=== PATIENT | female | born 1950 | race Caucasian/White ===

== ENCOUNTER 2017-09-08 18:22 | Observation (INO) | payer MEDICARE, MEDICAID ==
[~2017-09-08 18:22] MED LIST: ALBU6.7H INH; FLUT1SPR5 EACH NARE; GABA300C5 PO; LEVO100T5 PO; LISI40TA PO; LORA0.5T PO; MELO7.5T27 PO; SIMV20TA PO
[2017-09-08 19:37] VITALS: BP 154/74; PULSE 73; RESP 18; TEMP 97.6; O2SAT 95
[2017-09-08] MEDS ORDERED: METOCLOPRAMIDE HCL 10 MG/2 ML VIAL IV PUSH ONE (21:00)
[2017-09-08] MEDS ORDERED: HYDROmorphone HCL PF 2 MG/ML VIAL IV PUSH ONE (21:00)
--- NOTE | 2017-09-08 21:03 | PD ---
HPI Chief Complaint: Headache Time Seen by Provider: 20:58 Travel History International Travel<30 days: No Contact w/Intl Traveler<30days: No Traveled to known affect area: No History of Present Illness HPI The patient was initially evaluated in our [place] emergency department earlier today and transferred here for an MRA of the head at the request of neurosurgery. This is a 66-year-old female with history of cerebral aneurysm rupture in 2005 that was clipped by neurosurgeon Dr. Conley at that time presented to the [place] emergency department complaining of bifrontal headache that began 6 days ago. The pain radiates on the left side of her face and into her neck. She reports the pain is described as a toothache type pain, is constant, 10 out of 10. She was given Dilaudid at [place] with only mild relief of pain. CT of the head was performed there and shows aneurysmal clip in physician was some soft tissue of both aneurysm clips more prominent in appearance than it did in January with possibility of some enlargement. No definite subarachnoid hemorrhage seen. Patient is complaining of photophobia and some blurriness in her vision. No paresthesias or motor deficits. No trauma. PFSH Past Medical History Arthritis: Yes Asthma: Yes Blood Disorders: No Anxiety: Yes Heart Rhythm Problems: No Cancer: No Cardiovascular Problems: Yes (HTN, HIGH CHOLESTEROL) High Cholesterol: Yes Chest Pain: No Congestive Heart Failure: No COPD: Yes Cerebrovascular Accident: Yes Diminished Hearing: No Endocrine: Yes Gastrointestinal Disorders: Yes Glaucoma: Yes Genitourinary: No Headaches: Yes Hiatal Hernia: Yes Hypertension: Yes Immune Disorder: No Implanted Vascular Access Dvce: No Musculoskeletal: Yes (back pain) Neurologic: Yes (FIBROMYALGIA, brain aneurysm) Psychiatric: Yes Reproductive: Yes Respiratory: Yes (ASTHMA) Migraines: Yes Myocardial Infarction: No Seizures: No Sleep Apnea: No Thyroid Disease: Yes (HYPO) PNEUMOCCOCAL Vaccine (Year): 2 ?: Not Menopausal: Yes : 2 Para: 2 Miscarriage: 0 Ovarian Cysts: Yes Past Surgical History Abdominal Aneurysm Repair: Yes (L FRONTAL REPAIR 06/2006 IN BRAIN) Abdominal Surgery: Yes (BOWEL RESECTION FOR BENIGN TUMOR HERNIA) Cardiac Surgery: No Ear Surgery: No Endocrine Surgery: No Eye Surgery: No Genitourinary Surgery: No Gynecologic Surgery: Yes (IUD SURGICALLY REMOVED) Hysterectomy: Yes (PARTIAL- RIGHT OVARY AND RIGHT FALLOPIAN TUBE REMOVED) Neurologic Surgery: Yes (BRAIN ANEURYSM) Oral Surgery: Yes (DENTURES) Thoracic Surgery: No Other Surgery: Yes (RIGHT OVARIAN/BRAIN/COLON/HERNIA) Social History Alcohol Use: No Tobacco Use: No Substance Use: No Allergies-Medications (Allergen,Severity, Reaction): Coded Allergies: Sulfa (Sulfonamide Antibiotics) (Unverified Allergy, Severe, Nausea/ Vomiting, 09/08/17) iodine (Unverified Allergy, Severe, Headache, 09/08/17) monosodium glutamate (Unverified Allergy, Severe, 09/08/17) potassium iodide (Unverified Allergy, Severe, Headache, 09/08/17) povidone-iodine (Unverified Allergy, Severe, Headache, 09/08/17) sodium iodide (Unverified Allergy, Severe, Headache, 09/08/17) sodium iodide (Unverified Allergy, Severe, Headache, 09/08/17) Reported Meds & Prescriptions Reported Meds & Active Scripts Active Reported Meloxicam 7.5 Mg Tab 7.5 Mg PO BID Lorazepam 0.5 Mg Tab 0.5 Mg PO TID PRN Flonase Nasal Redgranite (Fluticasone Nasal Redgranite) 50 Mcg/Act Redgranite 50 Mcg EACH NARE BID Proventil Hfa 6.7 GM Inh (Albuterol Sulfate) 90 Mcg/Act Aer 2 Puff INH Q6H PRN Simvastatin 20 Mg Tab 20 Mg PO HS Levothyroxine (Levothyroxine Sodium) 100 Mcg Tab 100 Mcg PO DAILY Gabapentin 300 Mg Cap 300 Mg PO TID Lisinopril 40 Mg Tab 40 Mg PO DAILY Review of Systems Except as stated in HPI: all other systems reviewed are Neg Physical Exam Narrative GENERAL: Well-developed, well-nourished, awake, alert, appears comfortable, no apparent distress. SKIN: Focused skin assessment warm/dry. No rash. HEAD: Atraumatic. Normocephalic. EYES: Left pupil is 4 mm and minimally reactive, right pupil is 2 mm and minimally reactive. The patient reports history of bilateral cataract surgeries. No scleral icterus. No injection or drainage. ENT: No nasal bleeding or discharge. NECK: Trachea midline. No JVD. No nuchal rigidity. CARDIOVASCULAR: Regular rate and rhythm. RESPIRATORY: No accessory muscle use. Clear to auscultation. Breath sounds equal bilaterally. GASTROINTESTINAL: Abdomen soft, non-tender, nondistended. MUSCULOSKELETAL: No obvious deformities. No clubbing. No cyanosis. No edema. NEUROLOGICAL: Awake and alert. No obvious cranial nerve deficits. Motor grossly within normal limits. Normal speech. PSYCHIATRIC: Appropriate mood and affect; insight and judgment normal. Data Data Last Documented VS Vital Signs Date Time Temp Pulse Resp B/P (MAP) Pulse Ox O2 Delivery O2 Flow Rate FiO2 09/08/17 23:36 16 09/08/17 23:25 67 132/71 (91) 96 Room Air 09/08/17 19:37 97.6 Orders Orders Mra Brain W/O Contrast (Cow) (09/08/17 ) Mra Carotids W Contrast (09/08/17 ) Hydromorphone Pf Inj (Dilaudid Pf Inj) (09/08/17 21:00) Metoclopramide Inj (Reglan Inj) (09/08/17 21:00) MDM Medical Decision Making Medical Screen Exam Complete: Yes Emergency Medical Condition: Yes Differential Diagnosis Subarachnoid hemorrhage, intracranial abnormality, intracranial mass, tension headache, cluster headache, migraine headache, meningitis/encephalitis unlikely , cervical artery dissection Narrative Course Vital signs reviewed. Patient was sent here from [place] emergency department for an MRA of her brain. She has a history of cerebral aneurysm with clipping in [address] Conley. She has been having a headache over the last 6 days with a head CT that was done today that shows that there may be some enhancement around the site of her aneurysmal clipping. MRA was recommended by the patient's neurosurgeon Dr. Conley, so the patient was transferred here. Because the patient has aneurysmal clipping, and it is unclear exactly what's device was used for the clipping, the technical customer support specialist does not feel comfortable performing MRI at this time. The patient has a reported allergy to iodine and iodinated contrast material, therefore CTA cannot be performed. I discussed this with Dr. Conley as well as the MRI, and plan at this time is to admit the patient to the medical service for this can all be resolved in the morning. Patient was made aware of this plan. She was given a dose of IV Dilaudid and IV Reglan here and is resting comfortably. She still has a headache, however it has improved with the medication. Case discussed with hospitalist Dr. Donnelly who will admit the patient to her service. Diagnosis Primary Impression: Intractable headache Qualified Codes: R51 - Headache Admitting Information Admitting Physician Requests: Observation Adolfo James MD Sep 08, 2017 21:03
[2017-09-08 22:01] VITALS: BP 153/79; PULSE 89; RESP 20; O2SAT 96
[2017-09-08 23:25] VITALS: BP 132/71; PULSE 67; RESP 20; O2SAT 96
[2017-09-09] VITALS (15 sets, daily range): BP systolic 91–218; BP diastolic 54–104; PULSE 53–96; RESP 14–20; TEMP 97.7–98.7; O2SAT 93–100
[2017-09-09] MEDS ORDERED: IOHEXOL 350 MG/ML 10 ML VIAL (for RAD DIAG) IVCONTRAST ONE (00:14)
[2017-09-09] MEDS ORDERED: NALOXONE HCL 0.4 MG/ML AMP IV PUSH PRN (00:30)
[2017-09-09] MEDS ORDERED: SODIUM CHLORIDE 0.9% FLUSH 10 ML FLUSH IV FLUSH PRN (00:30)
--- NOTE | 2017-09-09 01:06 | HHI.HP ---
HPI Service [facility] Primary Care Physician Non-Staff Admission Diagnosis intractable headache Diagnoses: Chief Complaint: Headache Travel History International Travel<30 Days: No Contact w/Intl Traveler <30 Da: No Traveled to Known Affected Are: No History of Present Illness 66-year-old female with a history of hypertension, hyperlipidemia,migraines and aneurysm with clipping 2005 presented to the ED in [place] with complaints of severe headaches. Patient states for the last 6 days she has had Frontal headaches, constant, 10/10, with associated left neck pain, nausea and vomiting , pain is worse with lights and movement, Dilaudid seems to help some. She is nauseous and dry heaving and asking for food, she states she hasn't had anything since her coffee at breakfast. She is concerned it might be an problem with her aneurysm. She states the pain is bad but not as bad as when she had her aneurysm in 2005. Patient was sent from [place] for an MRA of the brain to evaluate for headache. Dr. Conley was notified and will see patient in AM. Head CT completed at [facility] reviewed and shows the aneurysm clip in stable position, with the soft tissue of the aneurysm clip slightly more prominent with possibility of enlargement. No signs of a subarachnoid hemorrhage. 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 Conley 07/12/06 Bowel resection Disc shaving Reported Medications Reported Meds & Active Scripts Active Reported Meloxicam 7.5 Mg Tab 7.5 Mg PO BID Lorazepam 0.5 Mg Tab 0.5 Mg PO TID PRN Flonase Nasal Sod (Fluticasone Nasal Sod) 50 Mcg/Act Sod 50 Mcg EACH NARE BID Proventil Hfa 6.7 GM Inh (Albuterol Sulfate) 90 Mcg/Act Aer 2 Puff INH Q6H PRN Simvastatin 20 Mg Tab 20 Mg PO HS Levothyroxine (Levothyroxine Sodium) 100 Mcg Tab 100 Mcg PO DAILY Gabapentin 300 Mg Cap 300 Mg PO TID Lisinopril 40 Mg Tab 40 Mg PO DAILY Allergies: Coded Allergies: Sulfa (Sulfonamide Antibiotics) (Unverified Allergy, Severe, Nausea/ Vomiting, 09/08/17) iodine (Unverified Allergy, Severe, Headache, 09/08/17) monosodium glutamate (Unverified Allergy, Severe, 09/08/17) potassium iodide (Unverified Allergy, Severe, Headache, 09/08/17) povidone-iodine (Unverified Allergy, Severe, Headache, 09/08/17) sodium iodide (Unverified Allergy, Severe, Headache, 09/08/17) sodium iodide (Unverified Allergy, Severe, Headache, 09/08/17) Active Ordered Medications Current Medications Medications (Trade) Dose Ordered Sig/Consuelo Route Start Time Stop Time Status Last Admin (NS Flush) 2 ml UNSCH PRN IV FLUSH 09/09/17 00:30 (NS Flush) 2 ml BID IV FLUSH 09/09/17 09:00 (Narcan Inj) 0.4 mg UNSCH PRN IV PUSH 09/09/17 00:30 Family History Dad: Emphysema Mother: Heart disease Social History Tobacco use: Quit 2005 Alcohol use: Denies Illicit drug use: Marijuana Physical Exam Vital Signs Vital Signs Date Time Temp Pulse Resp B/P (MAP) Pulse Ox O2 Delivery O2 Flow Rate FiO2 09/08/17 23:36 16 09/08/17 23:25 67 20 132/71 (91) 96 Room Air 09/08/17 22:01 89 20 153/79 (103) 96 Room Air 09/08/17 19:37 97.6 73 18 154/74 (100) 95 Physical Exam GENERAL: This is a well-nourished, well-developed patient, in no apparent distress. SKIN: No rashes, ecchymoses or lesions. Cool and dry. HEAD: Atraumatic. Normocephalic. EYES: Pupils unequal equal from cataracts, round and reactive. ENT: Nose without bleeding, purulent drainage or septal hematoma. airway patent. NECK: Trachea midline. No JVD or lymphadenopathy. CARDIOVASCULAR: Regular rate and rhythm without murmurs, gallops, or rubs. RESPIRATORY: Clear to auscultation. Breath sounds equal bilaterally. No wheezes , rales, or rhonchi. GASTROINTESTINAL: Abdomen soft, non-tender, nondistended MUSCULOSKELETAL: Extremities without clubbing, cyanosis, or edema. No joint tenderness, effusion, or edema noted. No calf tenderness. NEUROLOGICAL: Awake and alert. Motor and sensory grossly within normal limits. Normal speech. Caprini VTE Risk Assessment Caprini VTE Risk Assessment: No/Low Risk (score <= 1) Caprini Risk Assessment Model Point Value = 1 Point Value = 2 Point Value = 3 Point Value = 5 Age 41-60 Minor surgery BMI > 25 kg/m2 Swollen legs Varicose veins or History of unexplained or recurrent spontaneous Oral contraceptives or hormone replacement Sepsis (< 1 month) Serious lung disease, including pneumonia (< 1 month) Abnormal pulmonary function Acute myocardial infarction Congestive heart failure (< 1 month) History of inflammatory bowel disease Medical patient at bed rest Age 61-74 Arthroscopic surgery Major open surgery (> 45 min) Laparoscopic surgery (> 45 min) Malignancy Confined to bed (> 72 hours) Immobilizing plaster cast Central venous access Age >= 75 History of VTE Family history of VTE Factor V Leiden Prothrombin [id number] Lupus anticoagulant Anticardiolipin antibodies Elevated serum homocysteine Heparin-induced thrombocytopenia Other congenital or acquired thrombophilia Stroke (< 1 month) Elective arthroplasty Hip, pelvis, or leg fracture Acute spinal cord injury (< 1 month) Prophylaxis Regimen Total Risk Factor Score Risk Level Prophylaxis Regimen 0-1 Low Early ambulation 2 Moderate Order ONE of the following: *Sequential Compression Device (SCD) *Heparin 5000 units SQ BID 3-4 Higher Order ONE of the following medications: *Heparin 5000 units SQ TID *Enoxaparin/Lovenox 40 mg SQ daily (WT < 150 kg, CrCl > 30 mL/min) *Enoxaparin/Lovenox 30 mg SQ daily (WT < 150 kg, CrCl > 10-29 mL/min) *Enoxaparin/Lovenox 30 mg SQ BID (WT < 150 kg, CrCl > 30 mL/min) AND/OR *Sequential Compression Device (SCD) 5 or more Highest Order ONE of the following medications: *Heparin 5000 units SQ TID (Preferred with Epidurals) *Enoxaparin/Lovenox 40 mg SQ daily (WT < 150 kg, CrCl > 30 mL/min) *Enoxaparin/Lovenox 30 mg SQ daily (WT < 150 kg, CrCl > 10-29 mL/min) *Enoxaparin/Lovenox 30 mg SQ BID (WT < 150 kg, CrCl > 30 mL/min) AND *Sequential Compression Device (SCD) Assessment and Plan Problem List: (1) Intractable headache ICD Code: R51 - Headache Status: Acute (2) Hypertension ICD Code: I10 - Essential (primary) hypertension Status: Chronic Assessment and Plan 66-year-old female with a history of hypertension, hyperlipidemia,migraines and aneurysm with clipping 2005 presented to the ED in [place] with complaints of severe headaches. Intractable headache, for the last 6 days, history of migraines Head CT completed at [facility] reviewed and shows the aneurysm clip in stable position, with the soft tissue of the aneurysm clip slightly more prominent with possibility of enlargement. No signs of a subarachnoid hemorrhage. -MRA brain and carotids in AM -Consult neurosurgery -Pain management with IV Dilaudid -Antiemetics as needed -Given the length of time since headaches began, history and negative CT, patient appears stable to have MRA in AM to determine if clips are compatible. No signs of active hemorrhage. Hypertension, chronic, controlled -Cont home medications when med rec is complete, monitor vitals -PRNs if needed Hypothyroid, chronic -Cont home medications when med rec is complete DVT prophylaxis: SCDs Problem Qualifiers (1) Intractable headache: Qualified Codes: R51 - Headache Claudia Segal DASHA Sep 09, 2017 01:05
[2017-09-09] MEDS ORDERED: HYDROmorphone HCL PF 2 MG/ML VIAL IV PUSH PRN (01:30)
[2017-09-09] MEDS ORDERED: METOCLOPRAMIDE HCL 10 MG/2 ML VIAL IV PUSH PRN (01:30)
[2017-09-09] MEDS ORDERED: ONDANSETRON HCL 4 MG/2 ML VIAL IV PUSH PRN (01:30)
[2017-09-09] MEDS ORDERED: BISACODYL 10 MG SUPP RECTAL PRN (02:00)
[2017-09-09] MEDS ORDERED: MAGNESIUM HYDROXIDE SUSP 30 ML CUP PO PRN (02:00)
[2017-09-09] MEDS ORDERED: ACETAMINOPHEN 325 MG TAB PO PRN (02:00)
[2017-09-09] MEDS: HYDROmorphone HCL PF 2 MG/ML VIAL IV PUSH PRN ×2 (04:32→10:09)
[2017-09-09] MEDS ORDERED: diphenhydrAMINE HCL 50 MG CAP PO ONE ×2 (08:00→09:00)
[2017-09-09] MEDS ORDERED: SODIUM CHLORIDE 0.9% FLUSH 10 ML FLUSH IV FLUSH SCH (09:00)
[2017-09-09] MEDS ORDERED: predniSONE 50 MG TAB PO ONE (09:00)
[2017-09-09] MEDS ORDERED: methylPREDNISolone SOD SUCC 125 MG/2 ML VIAL IV SCH (10:15)
[2017-09-09] MEDS ORDERED: diphenhydrAMINE HCL 50 MG CAP PO SCH (10:15)
[2017-09-09] MEDS ORDERED: LORazepam 2 MG/ML VIAL ONE (11:30)
[2017-09-09] MEDS ORDERED: LORazepam 2 MG/ML VIAL IV PUSH PRN (11:45)
[2017-09-09] MEDS ORDERED: LABETALOL HCL 100 MG/20 ML VIAL IV PUSH PRN (12:00)
[2017-09-09] MEDS ORDERED: hydrALAZINE HCL 20 MG/ML VIAL IV PUSH PRN (12:00)
[2017-09-09] MEDS ORDERED: ENALAPRILAT 1.25 MG/ML VIAL IV PUSH PRN (12:00)
[2017-09-09] MEDS ORDERED: hydrALAZINE HCL 10 MG TAB PO PRN (12:00)
[2017-09-09 12:02] LABS: AUTOMATED NEUTROPHIL # 10.4 TH/MM3 (1.8-7.7); BASOPHIL # 0.1 TH/MM3 (0-0.2); BASOPHIL % 0.6 % (0.0-2.0); EOSINOPHIL % 0.3 % (0.0-4.0); HEMATOCRIT 43.5 % (35.0-46.0); LYMPH % 18.7 % (9.0-44.0); LYMPHOCYTE # 2.6 TH/MM3 (1.0-4.8); MEAN CELL VOLUME 91.4 FL (80.0-100.0); MEAN CORPUSCULAR HEMOGLOBIN 29.5 PG (27.0-34.0); MEAN CORPUSCULAR HGB CONC 32.3 % (32.0-36.0); MEAN PLATELET VOLUME 10.8 FL (7.0-11.0); MONO % 5.7 % (0.0-8.0); MONOCYTE # 0.8 TH/MM3 (0-0.9); NEUT % 74.7 % (16.0-70.0); PLATELET COUNT 263 TH/MM3 (150-450); RED BLOOD COUNT 4.76 MIL/MM3 (4.00-5.30); RED CELL DISTRIBUTION WIDTH 15.9 % (11.6-17.2)
--- NOTE | 2017-09-09 12:13 | RADRPT ---
EXAM DATE/TIME: 09/09/2017 12:01 [facility] COMPARISON: No previous studies available for comparison. INDICATIONS : Evaluate for aneurysm,seizure and reaction to benadryl in last few minutes. RADIATION DOSE: 41.53 CTDIvol (mGy) MEDICAL HISTORY : Cerebrovascular disease. Cardiovascular disease Hypertension.Aneurysm SURGICAL HISTORY : Hysterectomy. AAA, bowel resection. ENCOUNTER: Initial ACUITY: 1 day PAIN SCALE: Non-responsive LOCATION: cranial TECHNIQUE: Multiple contiguous axial images were obtained of the head. Using automated exposure control and adj ustment of the mA and/or kV according to patient size, radiation dose was kept as low as reasonably a chievable to obtain optimal diagnostic quality images. DICOM format image data is available electro nically for review and comparison. FINDINGS: The examination demonstrates extensive subarachnoid hemorrhage involving the middle cranial fossa wit h some degree of hemorrhage extending into the substance of the left temporal lobe. There is intraven tricular hemorrhage as well. There is subdural hemorrhage layering along the tentorium. Note is made of an aneurysm clip in the floor the middle cranial fossa on the left. The ventricular system is normal in size and configuration. No focal mass lesion is identified. The c erebellum and brainstem appear intact. Note is made of hemorrhage within the fourth ventricle as well . The osseous structures of skull demonstrate postcraniotomy changes on the left. CONCLUSION: 1. Extensive subarachnoid hemorrhage involving the middle cranial fossa predominantly left sided with some degree of parenchymal hemorrhage in the left temporal lobe. There is intraventricular hemorrhag e as well. 2. Note is made of an aneurysm clip in the middle cranial fossa as well. Wong Springer MD on September 09, 2017 at 12:09 Board Certified Radiologist. This report was verified electronically.
[2017-09-09] MEDS ORDERED: GLUCAGON 1 MG/ML VIAL OTHER PRN (12:15)
[2017-09-09] MEDS ORDERED: DEXTROSE 50% IN WATER 50 ML VIAL(D50) IV PUSH PRN (12:15)
--- NOTE | 2017-09-09 12:25 | HHI.PR ---
Subjective Remarks Paged by the nurse as patient with acute deterioration. Patient with acute deterioration, noted alert and oriented x4 prior. In bed appears diaphoretic. Dessating 86% while on 2L NC. Patient also was not responding initially briefly, but improved. Patient is alert and oriented by name now, noted with sob, diaphoretic, says has change in vision. She is moving arms and legs and has a good strength. However she has neck rigidity. Start CT ordered and also Dr Conley was notified. Patient went for CT and per premiliminary reading patient with Objective Vitals Vital Signs Date Time Temp Pulse Resp B/P (MAP) Pulse Ox O2 Delivery O2 Flow Rate FiO2 09/09/17 07:37 98.7 92 18 140/75 (96) 94 Room Air 09/09/17 06:15 53 16 144/63 (90) 93 Room Air 09/09/17 04:45 77 18 134/63 (86) 97 Room Air 09/09/17 00:25 72 16 129/63 (85) 94 Room Air 09/08/17 23:36 16 09/08/17 23:25 67 20 132/71 (91) 96 Room Air 09/08/17 22:01 89 20 153/79 (103) 96 Room Air 09/08/17 19:37 97.6 73 18 154/74 (100) 95 Result Diagram: 09/09/17 1136 Objective Remarks GENERAL: This is a pleasant 66 yo female, well-nourished, well-developed patient , noted in acute distress with acute deterioration, diaphoretic, lethargic. CARDIOVASCULAR: Regular rate and rhythm without murmurs, gallops, or rubs. RESPIRATORY: Decreased breathing sounds. Labored breathing. No wheezes, rales , or rhonchi. GASTROINTESTINAL: Abdomen soft, non-tender, nondistended. MUSCULOSKELETAL: Extremities without clubbing, cyanosis, or edema. No joint tenderness, effusion, or edema noted. No calf tenderness. NEUROLOGICAL: Awake and alert x name however she is becoming lethargic on/off. Blurry vision, doesn't follow all commands. Motor and sensory grossly within normal limits. Normal speech, slow, however deteriorating and lethargic now. A/P Problem List: (1) Intractable headache ICD Code: R51 - Headache Status: Acute (2) Hypertension ICD Code: I10 - Essential (primary) hypertension Status: Chronic Assessment and Plan 66-year-old female with a history of hypertension, hyperlipidemia,migraines and aneurysm with clipping 2005 presented to the ED in [place] with complaints of severe headaches. Intractable headache, for the last 6 days, history of migraines Head CT completed at [place] reviewed and shows the aneurysm clip in stable position, with the soft tissue of the aneurysm clip slightly more prominent with possibility of enlargement. Now noted with signs of acute subarachnoid hemorrhage. Was planed for MRA brain and carotids in the AM, however patient is refusing MRIs. Do instead CTA brain, discussed with Dr Mckeon and Dr Conley Consult neurosurgery, Dr Conley ff Consult neurology Initially the ABG reviewed and fairly normal. Patient however went to CT brain and also after CTA brain the patient is deteriorating even more she is dessating and with labor breathing, altered mentation, Consult nurse behavioral health care discussed with Dr Esposito he will come and intubate patient as the patient is with labored breathing. Pain management with IV Dilaudid, hold at this time as patient altered mental status Antiemetics as needed Zofran for nausea BP elevated SBP in 180s. Labetalol, hydralazine IVP for SBP> 160 start nicardipine drip. ordered start CXR, EKG reviewed and no significant acute changes. Trop start neg CBC, CBP, PTT, INR reviewed Neurochecks q1 hrs PT/OT/ST NPO Hypertension, chronic, controlled Cont home medications when med rec is complete, monitor vitals PRNs if needed Hypothyroid, chronic Cont home medications when med rec is complete DVT prophylaxis: SCDs Patient deteriorating nurse behavioral health care consulted patient is intubated by nurse behavioral health care and will be moved to surgical ICU. Patient might need to be transferred to [facility] pending reevaluation by Dr Conley neurosurgevania Transfer patient to ICU Discussed with the patient, nurse, Dr Esposito, nurse behavioral health care, Dr Conley neurosurgeon Critical time > 40 minutes Problem Qualifiers (1) Intractable headache: Qualified Codes: R51 - Headache Mamie Tyler MD Sep 09, 2017 12:25
[2017-09-09] MEDS ORDERED: SUCCINYLCHOLINE CHLORIDE 200 MG/10 ML VIAL ONE (12:30)
[2017-09-09] MEDS ORDERED: ETOMIDATE 40 MG/20 ML VIAL ONE (12:30)
[2017-09-09 12:31] LABS: PROTHROMBIN TIME - PATIENT 10.4 SEC (9.8-11.6)
--- NOTE | 2017-09-09 12:35 | RADRPT ---
EXAM DATE/TIME: 09/09/2017 12:09 [facility] COMPARISON: No previous studies available for comparison. INDICATIONS : Confusion, altered mental status, stroke symptoms. MEDICAL HISTORY : Hypothyroidism. Chronic obstructive pulmonary disease. Hypercholesterolemia. Fibromyalgia. Aneury sm. CVA. Hypertension. Asthma. Hiatial Hernia. SURGICAL HISTORY : Hysterectomy. Left frontal brain aneurysm. Bowel resection. ENCOUNTER: Initial ACUITY: 1 day PAIN SCORE: 0/10 LOCATION: chest FINDINGS: A single view of the chest demonstrates the lungs to be symmetrically aerated without evidence of mas s, infiltrate or effusion. Mild chronic changes are present in the aorta. The cardiomediastinal cont ours are unremarkable. Osseous structures are intact. CONCLUSION: No acute disease. Ricardo Dawn MD on September 09, 2017 at 12:32 Board Certified Radiologist. This report was verified electronically.
[2017-09-09] MEDS ORDERED: niCARdipine INJ 25 MG in SODIUM CHLOR 0.9% 250 ML INJ 240 ML IV PRN ×2 (12:45)
[2017-09-09 12:46] LABS: ALKALINE PHOSPHATASE 110 U/L (45-117); ALT (GPT) 16 U/L (10-53); TOTAL BILIRUBIN ADULT 0.5 MG/DL (0.2-1.0); TOTAL PROTEIN 8.5 GM/DL (6.4-8.2); TROPONIN I LESS THAN 0.02 NG/ML (0.02-0.05)
[2017-09-09 12:48] LABS: AST (GOT) 20 U/L (15-37); BICARBONATE 23.5 MEQ/L (21.0-32.0); BLOOD UREA NITROGEN 11 MG/DL (7-18); CALCIUM 9.3 MG/DL (8.5-10.1); CHLORIDE 106 MEQ/L (98-107); CREATININE 0.75 MG/DL (0.50-1.00); GLOMERULAR FILTRATION RATE 77 ML/MIN (>89); GLUCOSE,RANDOM 135 MG/DL (74-106); SODIUM (NA) 142 MEQ/L (136-145)
[2017-09-09 12:49] LABS: C-REACTIVE PROTEIN 0.6 MG/DL (0.00-0.30); MAGNESIUM 2.1 MG/DL (1.5-2.5); PHOSPHORUS 3.3 MG/DL (2.5-4.9)
--- NOTE | 2017-09-09 12:59 | PD ---
Data Data Last Documented VS Vital Signs Date Time Temp Pulse Resp B/P (MAP) Pulse Ox O2 Delivery O2 Flow Rate FiO2 09/08/17 23:36 16 09/08/17 23:25 67 132/71 (91) 96 Room Air 09/08/17 19:37 97.6 Orders Orders Hydromorphone Pf Inj (Dilaudid Pf Inj) (09/08/17 21:00) Metoclopramide Inj (Reglan Inj) (09/08/17 21:00) Admit Order (Ed Use Only) (09/09/17 00:13) MDM Supervised Visit with EVARISTO: No Narrative Course This patient was evaluated by previous shift ER physician but still sitting here in the emergency department when she had a significant turn for the worse. Nursing staff asked me to emergently evaluate this patient. She was found to be lying half out of the bed and obtunded with snoring respiratory effort. She is not able to provide any history or review of systems. She is not controlling her airway. She has no gag reflex. She is choking on secretions. She was just taken for repeat CT of the brain which shows a large subarachnoid hemorrhage. This patient requires emergent intubation to control her airway. INTUBATION: The patient was put in optimal position for the procedure. Rapid sequence intubation was initiated by me using 20 milligrams of etomidate IV and 100 milligrams of succinylcholine IV. The patient was intubated with a 7.5 cuffed endotracheal tube. Tube placement was confirmed by visualization of the tube and balloon passing through the cords, capnometry. Post admission chest x-ray was ordered but patient was emergently taken for CT angiogram before it could be done. Breath sounds were equal and well aerated bilaterally postintubation. No breath sounds over stomach. Patient tolerated procedure without complication. I've ordered Cardene drip as systolic blood pressure is 200. I discussed the case with canvas marker Dr. Esposito. He came down to the emergency room and is evaluated the patient as well. After emergent CTA patient will be going up to intensive care Critical Care Narrative Aggregate critical care time was 35 minutes. Time to perform other separately billable procedures was not included in the critical care time. My time did not include minutes spent treating any other patients simultaneously or on activities that did not directly contribute to the patient's treatment. The services I provided to this patient were to treat and/or prevent clinically significant deterioration that could result in: Cardiopulmonary arrest, brain stem herniation, permanent neurologic deficit I provided critical care services requiring my management, as noted below: Chart data review, documentation time, medication orders and management, vital sign assessments/reviewing monitor data, ordering and reviewing lab tests, ordering and interpreting/reviewing x-rays and diagnostic studies, care of the patient and discussion of the patient with the admitting physicians. Diagnosis Primary Impression: Subarachnoid hemorrhage due to ruptured aneurysm Additional Impressions: Airway compromise Hypertensive emergency Admitting Information Admitting Physician Requests: Admit Condition: Critical Delonte Hunter MD Sep 09, 2017 12:59
--- NOTE | 2017-09-09 13:16 | RADRPT ---
EXAM DATE/TIME: 09/09/2017 12:53 [facility] COMPARISON: No previous studies available for comparison. INDICATIONS : Aneurysm. IV CONTRAST: 75 cc Omnipaque 350 (iohexol) IV ; Cumulative dose for multiple exams. RADIATION DOSE: 28.61 CTDIvol (mGy) MEDICAL HISTORY : Cardiovascular disease. Cerebrovascular disease. Hypertension. SURGICAL HISTORY : None. ENCOUNTER: Initial ACUITY: 1 day PAIN SCALE: Non-responsive LOCATION: cranial TECHNIQUE: Multiple contiguous axial images were obtained of the head. Using automated exposure control and adj ustment of the mA and/or kV according to patient size, radiation dose was kept as low as reasonably a chievable to obtain optimal diagnostic quality images. DICOM format image data is available electro nically for review and comparison. FINDINGS: Diffuse subarachnoid hemorrhage is again noted. Parenchymal hemorrhage in the medial left temporal re gion is noted. There appears to be intraventricular hemorrhage in the left temporal horn and a cast o f blood in the third ventricle. Thin left subdural hemorrhage is noted. Aneurysm clip is present the left skull base with hyperdense mass adjacent to it consistent with residual recurrent aneurysm. Mild periventricular white matter hypodensity of undetermined chronicity.. CONCLUSION: Extensive intracranial hemorrhage. Left supraclinoid carotid aneurysm recurrence. Fab Mckeon MD on September 09, 2017 at 13:11 Board Certified Radiologist. This report was verified electronically.
[2017-09-09] MEDS ORDERED: LORazepam 2 MG/ML VIAL IV PUSH ONE (13:30)
--- NOTE | 2017-09-09 13:37 | RADRPT ---
EXAM DATE/TIME: 09/09/2017 12:53 [facility] COMPARISON: CT BRAIN W/O CONTRAST, September 09, 2017, 12:01. INDICATIONS : Aneurysm. IV CONTRAST: 75 cc Omnipaque 350 (iohexol) IV ; Cumulative dose for multiple exams. RADIATION DOSE: 28.61 CTDIvol (mGy) MEDICAL HISTORY : Cerebrovascular disease. Cardiovascular disease Hypertension. SURGICAL HISTORY : Hysterectomy. ENCOUNTER: Initial ACUITY: 1 day PAIN SCALE: Non-responsive LOCATION: cranial TECHNIQUE: Volumetric scanning was performed using a multi-row detector CT scanner. The data was post processed with a variety of visualization algorithms including full volume maximum intensity projection, multi -planar sliding thin slab reformation, curved planar reformation, and surface rendering techniques. Using automated exposure control and adjustment of the mA and/or kV according to patient size, radiat ion dose was kept as low as reasonably achievable to obtain optimal diagnostic quality images. DICO M format image data is available electronically for review and comparison. FINDINGS: Both distal internal carotids are widely patent. The vertebral are patent. The basilar is patent. The examination demonstrates an area of fusiform dilation of the supraclinoid carotid on the left. Th is is immediately adjacent to the aneurysm clip. The area of aneurysmal dilation measures approximate ly 1.6 x 1.4 cm. The aneurysmal dilation extends up to the carotid T. but does not involve the origin s of the anterior or middle cerebral circulation on the left. The overall configuration of the aneury sm is more fusiform short segment dilation of the supraclinoid carotid rather than a true saccular an eurysm. The examination also demonstrates a 0.4 x 0.4 cm aneurysm involving the right MCA trifurcation. The anterior cervical circulation is unremarkable in appearance. The posterior cerebral circulation is unremarkable in appearance. CONCLUSION: 1. The examination demonstrates a 1.4 x 1.6 cm area of fusiform dilation of the supraclinoid carotid on the left. This is immediately adjacent to the patient's aneurysm clip. This extends up to the leve l of the carotid T. 2. 0.4 x 0.4 cm saccular aneurysm involving the right MCA trifurcation. Wong Springer MD on September 09, 2017 at 13:27 Board Certified Radiologist. This report was verified electronically.
--- NOTE | 2017-09-09 13:42 | RADRPT ---
EXAM DATE/TIME: 09/09/2017 12:53 [facility] COMPARISON: CT BRAIN W/O CONTRAST, September 09, 2017, 12:01. INDICATIONS : Aneurysm. IV CONTRAST: 74 cc Omnipaque 350 (iohexol) IV RADIATION DOSE: 37.88 CTDIvol (mGy) MEDICAL HISTORY : Cardiovascular disease. Hypertension. CVA. SURGICAL HISTORY : Abdominal aortic aneurysm repair. Hysterectomy.Hiatal hernia ENCOUNTER: Initial ACUITY: 1 day PAIN SCALE: Non-responsive LOCATION: Bilateral cranial Elevated flow velocities and ICA/CCA ratios have been found to correlate with increased degrees of vessel stenosis, calculated as percentage of diameter relative to a normal segment of distal ICA/CCA. TECHNIQUE: Volumetric scanning was performed using a multirow detector CT scanner. The data was post processed with a variety of visualization algorithms including full-volume maximum intensity projection, multip lanar sliding thin-slab reformation, curved-planar reformation, and surface-rendering techniques. Us ing automated exposure control and adjustment of the mA and/or kV according to patient size, radiatio n dose was kept as low as reasonably achievable to obtain optimal diagnostic quality images. DICOM f ormat image data is available electronically for review and comparison. FINDINGS: AORTIC ARCH: There is a three-vessel origin of the great vessels from the aorta. No evidence of ostial narrowing. RIGHT CAROTID: The common carotid artery is intact. The carotid bulb has a normal configuration without ulceration o r narrowing. The internal carotid artery lumen is smooth without stenosis. The external carotid mimi ry is intact. LEFT CAROTID: The common carotid artery is intact. The carotid bulb has a normal configuration without ulceration or narrowing. There is a single punctate calcified atherosclerotic plaque. The internal carotid mimi ry lumen is smooth without stenosis. The external carotid artery is intact. VERTEBRALS: The vertebral arteries have a symmetric diameter. No stenotic lesions are seen. CONCLUSION: 1. No hemodynamically significant carotid artery stenosis identified. 2. Both vertebral arteries are widely patent. 3. Note is made of the patient's 1.4 cm supraclinoid carotid aneurysm on the left. 4. Note is also made of a 4 mm right MCA trifurcation aneurysm. Wong Springer MD on September 09, 2017 at 13:35 Board Certified Radiologist. This report was verified electronically.
--- NOTE | 2017-09-09 14:03 | PD.OP ---
Operative Report Date of Surgery: Sep 09, 2017 Preoperative Diagnosis: Subarachnoid hemorrhage from ruptured cerebral aneurysm with moderate hydrocephalus Postoperative Diagnosis: Same Procedure: Right twist drill hole frontal ventriculostomy placement Anesthesia: Local with sedation Surgeon: Vipin Conley M.D. Fitter Up(s): None Operation and Findings: 66-year-old lady with a remote history of left posterior communicating ICA aneurysm clipping 12 years ago following subarachnoid hemorrhage. 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 Subsequent imaging studies she refused along with follow-up surveillance imaging. She presented to [facility] emergency room yesterday with six day history of headaches. CT of the head did not reveal any subarachnoid hemorrhage or hydrocephalus with the left ICA aneurysm clip in place and suggestion of aneurysm recurrence on the noncontrast study. CT angiogram could not be obtained without prepping given her iodine contrast allergy and she was transferred to the main facility. Patient was scheduled to undergo an MR angiogram but refused this study and this morning her neurologic condition declined and the follow-up CT scan of the head reveals subarachnoid hemorrhage in the basal cisterns more so on the left ambient cistern and and intraventricular hemorrhage with mild to moderate developing hydrocephalus. She was prepped with Benadryl and Solu-Medrol and CT angiogram obtained which reveals a broad-based fusiform large left ICA paraclinoid/supraclinoid aneurysm adjacent to the clip site. She also has a small right MCA aneurysm. The interventional radiologist are not equipped to treat this aneurysm endovascularly and arrangements are being made to transfer the patient to [facility] in [place] for more definitive treatment. Given the subarachnoid hemorrhage and developing hydrocephalus along with declining neurologic condition an emergent ventriculostomy placement is indicated. Procedure was undertaken at the bedside intensive care unit taking the patient' s best interest into account since there is no family member currently available to give consent. Following continuation of Diprivan drip with the oxygen saturation and hemodynamic monitoring in the intensive care unit, the right frontal region was shaved and the prep with chlor prep and sterilely draped. Using landmarks of 11 cm behind the nasion and 3 cm to the right of the midline, a 1 cm scalp incision was made after infiltrating with 1% lidocaine with epinephrine solution. With a handheld drill a twist drill hole was made in the underlying dura penetrated with a blunt probe. The bactiseal ventriculostomy catheter was then passed into the lateral ventricle at a depth of 7 cm blood-tinged CSF encountered with an opening pressure around 8 cm H20. The distal end of the ventriculostomy was then tunneled under the scalp with a trocar and secured to the exit site with a 3-0 nylon thigh and connected to a drainage bag. Scalp incision site was approximated with 3-0 nylon interrupted stitches A sterile dressing was applied. There were no complications and blood loss was less than 5 cc. Vipin Conley MD Sep 09, 2017 14:03
--- NOTE | 2017-09-09 14:08 | PD.CONS ---
[facility] Service Critical Care Medicine Consult Requested By Dr. Tyler Reason for Consult massive subarachnoid hemorrhage Primary Care Physician Non-Staff History of Present Illness This is a 66yF with history of prior SAH with left ICA/[employer] aneurysm in 2005 which was treated with open clipping at this institution who presented on 09/08 with headache, nausea, vomiting. CT head was equivocal for possible recurrent SAH and recommendation was for CTA head/neck. At that time at our outlying emergency department, the patient refused CTA due to a contrast allergy. She was transferred to [facility] in [place] for close monitoring and MRI/MRA. This morning, she became acutely altered and obtunded. CT head now demonstrated massive SAH with intraventricular spread. CTA head/ neck demonstrates left ICA fusiform dilation measuring 15mm, as well as likely incidental [id number] right MCA aneurysm. Patient was emergently intubated by an ER physician. I was called approximately 30 seconds prior to the ER physician intubating the patient. I immediately came to bedside and did have the opportunity to examine the patient immediately prior to intubation without medication: she was a GCS 3 with right pupil 1mm and left pupil 4mm and nonreactive. - cough, - gag. remainder of history unobtainable due to her clinical condition. Past Family Social History Allergies: Coded Allergies: Sulfa (Sulfonamide Antibiotics) (Unverified Allergy, Severe, Nausea/ Vomiting, 09/08/17) iodine (Unverified Allergy, Severe, Headache, 09/08/17) monosodium glutamate (Unverified Allergy, Severe, 09/08/17) potassium iodide (Unverified Allergy, Severe, Headache, 09/08/17) povidone-iodine (Unverified Allergy, Severe, Headache, 09/08/17) sodium iodide (Unverified Allergy, Severe, Headache, 09/08/17) sodium iodide (Unverified Allergy, Severe, Headache, 09/08/17) Past Medical History Hypertension Hypothyroidism Degenerative Joint Disease Fibromyalgia Migraine Bronchial Asthma Subarachnoid hemorrhage/intraventricular hemorrhage from a ruptured left internal carotid artery/posterior communicating artery aneurysm OA RA Past Surgical History Right oophorectomy for a cyst Left frontotemporal craniotomy with orbitozygomatic exposure for clipping of a left internal carotid artery posterior communicating aneurysm, left frontal ventriculostomy placement, cranioplasty with bone cement by Dr. Conley 07/12/06 Bowel resection Disc shaving Reported Medications Meloxicam 7.5 Mg Tab 7.5 Mg PO BID Lorazepam 0.5 Mg Tab 0.5 Mg PO TID PRN Flonase Nasal Kenvir (Fluticasone Nasal Kenvir) 50 Mcg/Act Kenvir 50 Mcg EACH NARE BID Proventil Hfa 6.7 GM Inh (Albuterol Sulfate) 90 Mcg/Act Aer 2 Puff INH Q6H PRN Simvastatin 20 Mg Tab 20 Mg PO HS Levothyroxine (Levothyroxine Sodium) 100 Mcg Tab 100 Mcg PO DAILY Gabapentin 300 Mg Cap 300 Mg PO TID Lisinopril 40 Mg Tab 40 Mg PO DAILY Active Ordered Medications See MAR Family History Dad: Emphysema Mother: Heart disease Social History Tobacco use: Quit 2005 Alcohol use: Denies Illicit drug use: Marijuana Physical Exam Vital Signs Vital Signs Date Time Temp Pulse Resp B/P (MAP) Pulse Ox O2 Delivery O2 Flow Rate FiO2 09/09/17 12:45 87 218/101 09/09/17 11:53 97 Nasal Cannula 4.00 09/09/17 07:37 98.7 92 18 140/75 (96) 94 Room Air 09/09/17 06:15 53 16 144/63 (90) 93 Room Air 09/09/17 04:45 77 18 134/63 (86) 97 Room Air 09/09/17 00:25 72 16 129/63 (85) 94 Room Air 09/08/17 23:36 16 09/08/17 23:25 67 20 132/71 (91) 96 Room Air 09/08/17 22:01 89 20 153/79 (103) 96 Room Air 09/08/17 19:37 97.6 73 18 154/74 (100) 95 Physical Exam gen: obtunded. middle-aged appearing female. heent: right pupil 1mm, left 4mm, nonreactive. neck: trachea midline. no jvd. actively being intubated. chest: agonal. equal chest rise. cv: normal rate, regular rhtyhm. severely hypertensive sbp 200s. abd: soft, nontender, nondistended, no guarding. extr: no peripheral edema. distal pulses 2+ neuro: GCS 3. -cough, - gag. pupils as above. Repeat neuro exam after EVD placement: +cough. pupils weakly reactive. opens eyes to stimuli. Laboratory Laboratory Tests Test 09/09/17 10:36 09/09/17 11:36 09/09/17 11:48 Prothrombin Time 10.4 Prothromb Time International Ratio 1.0 Activated Partial Thromboplast Time 24.7 White Blood Count 14.0 Red Blood Count 4.76 Hemoglobin 14.0 Hematocrit 43.5 Mean Corpuscular Volume 91.4 Mean Corpuscular Hemoglobin 29.5 Mean Corpuscular Hemoglobin Concent 32.3 Red Cell Distribution Width 15.9 Platelet Count 263 Mean Platelet Volume 10.8 Neutrophils (%) (Auto) 74.7 Lymphocytes (%) (Auto) 18.7 Monocytes (%) (Auto) 5.7 Eosinophils (%) (Auto) 0.3 Basophils (%) (Auto) 0.6 Neutrophils # (Auto) 10.4 Lymphocytes # (Auto) 2.6 Monocytes # (Auto) 0.8 Eosinophils # (Auto) 0.0 Basophils # (Auto) 0.1 CBC Comment DIFF FINAL Differential Comment Erythrocyte Sedimentation Rate 24 Blood Urea Nitrogen 11 Creatinine 0.75 Random Glucose 135 Total Protein 8.5 Albumin 4.0 Calcium Level 9.3 Alkaline Phosphatase 110 Aspartate Amino Transf (AST/SGOT) 20 Alanine Aminotransferase (ALT/SGPT) 16 Total Bilirubin 0.5 Sodium Level 142 Potassium Level 3.9 Chloride Level 106 Carbon Dioxide Level 23.5 Anion Gap 13 Estimat Glomerular Filtration Rate 77 Phosphorus Level 3.3 Magnesium Level 2.1 Total Creatine Kinase 176 Creatine Kinase MB 5.4 Troponin I LESS THAN 0.02 C-Reactive Protein 0.60 Blood Gas Puncture Site RT RADIAL Blood Gas Patient Temperature 98.6 Blood Gas HCO3 24 Blood Gas Base Excess 0.1 Blood Gas Oxygen Saturation 98 Arterial Blood pH 7.40 Arterial Blood Partial Pressure CO2 40 Arterial Blood Partial Pressure O2 157 Arterial Blood Oxygen Content 18.7 Arterial Blood Carboxyhemoglobin 1.2 Arterial Blood Methemoglobin 0.5 Blood Gas Hemoglobin 13.5 Oxygen Delivery Device NASAL CANNULA Blood Gas Liter Flow 4 Result Diagram: 09/09/17 1136 09/09/17 1136 Imaging Last Impressions Head CTA 09/09/17 0000 Signed Impressions: Service Date/Time: Saturday, September 09, 2017 12:53 - CONCLUSION: 1. The examination demonstrates a 1.4 x 1.6 cm area of fusiform dilation of the supraclinoid carotid on the left. This is immediately adjacent to the patient' s aneurysm clip. This extends up to the level of the carotid T. 2. 0.4 x 0.4 cm saccular aneurysm involving the right MCA trifurcation. Wong Springer MD Head CT 09/09/17 0000 Signed Impressions: Service Date/Time: Saturday, September 09, 2017 12:01 - CONCLUSION: 1. Extensive subarachnoid hemorrhage involving the middle cranial fossa predominantly left sided with some degree of parenchymal hemorrhage in the left temporal lobe. There is intraventricular hemorrhage as well. 2. Note is made of an aneurysm clip in the middle cranial fossa as well. Wong Springer MD Chest X-Ray 09/09/17 0000 Signed Impressions: Service Date/Time: Saturday, September 09, 2017 12:09 - CONCLUSION: No acute disease. 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 Remains critically ill. Have initiated emergent transfer to [facility] for high-risk aneurysm securement given very complex anatomy. 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 - NPO - OG tube to LIWS critical care time: 82 minutes, exclusive of separately billable procedures. Code Status Full Code Bright Varma MD Sep 09, 2017 14:08
--- NOTE | 2017-09-09 14:10 | PD.PROCEDR ---
Procedure Note Procedure Procedure: Arterial Line Placement Left radial arterial line Diagnosis: Subarachnoid hemorrhage Indications: [id number] hemodynamic monitoring Consent: Emergent Description of the Procedure: The left wrist was prepped and draped sterilely. 1% lidocaine was used for local anesthesia. The pulse was located and a needle was advanced into the artery. A 20 gauge, 12 cm catheter was advanced into the artery using a modified Seldinger technique. The catheter was sutured to the skin and a sterile dressing was applied. The catheter was connected to a pressure transducer and an arterial waveform was noted. There were no immediate complications noted. There was minimal EBL. I personally performed the procedure. Bright Varma MD Sep 09, 2017 14:09
[2017-09-09 14:37] LABS: HEMOGLOBIN A1C 5.7 % (4.3-6.0)
[2017-09-09] MEDS ORDERED: niCARdipine 25 MG/NS 250 ML Vial2Bag or IV room IV PRN ×2 (14:45)
[2017-09-09] MEDS ORDERED: predniSONE 50 MG TAB PO SCH (15:00)
[2017-09-09] MEDS ORDERED: PROPOFOL 1000 MG/100 ML INJ 100 ML IV PRN (15:45)
[2017-09-09] MEDS ORDERED: niMODipine 30 MG CAP PO SCH (16:00)
[2017-09-09] MEDS ORDERED: INSULIN ASPART SUPPLEMENTAL SCALE SQ SCH (17:00)
--- NOTE | 2017-09-09 17:04 | MB ---
DATE OF CONSULTATION 09/09/17 REASON FOR CONSULTATION Subarachnoid hemorrhage. HISTORY OF PRESENT ILLNESS A 66-year-old female who presented to [facility] Emergency room yesterday with complaints of about six days of headaches prior to that. Workup included a CT scan of the head which did not reveal any acute abnormality with no hemorrhage or any hydrocephalus noted. She has a remote history about 12 years ago of a left cerebral aneurysm clipping status post subarachnoid hemorrhage for a ruptured posterior communicating artery aneurysm. She was also found to have smaller right MCA and possible IC aneurysms. She has a history of IODINE AND CONTRAST allergy and has been reluctant to undergo any follow-up imaging studies, fully understanding the risk of aneurysmal progression. A plain CT scan did suggest the possibility of aneurysmal recurrence on the left ICA area adjacent to the clip. We had requested a CT angiogram, but given her iodine contrast allergies, she needed to be prepped for this and they could not undertake this study at the [facility] emergency room. She was transferred to [facility] emergency room to undertake MR angiogram and this was requested last evening. The patient declined the MRI scan and therefore iodine prep allergy was undertaken. This morning, she was scheduled for a cerebral angiogram, but the radiologist felt that the CT angiogram should be obtained first. During this time period, the patient's neurologic condition acutely declined and she became unresponsive with labored respiration. A followup CT scan showed subarachnoid hemorrhage involving the basal cisterns as well as on the left sylvian fissure area with some intraventricular hemorrhage in the fourth ventricle and third ventricle and mild to moderate ventriculomegaly. Subsequently, she was intubated and CT angiogram of the brain obtained which reveals a large 16 mm left ICA supraclinoid aneurysm adjacent to the aneurysm clip with a broad-based neck. She also has a 4 mm right MCA trifurcation aneurysm. Dr. Mckeon from interventional radiology does not feel that he could treat this endovascularly and we felt best that the patient should be transferred to the [facility] in [place] for more definitive treatment of this aneurysmal recurrence. Currently, there is no family available and attempts are being made to locate the family and update them on her status. PAST MEDICAL HISTORY 1. 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 2. Unruptured right MCA aneurysm, 3. Severe COPD, 4. Hypertension, 5. Hypothyroidism, 6. Fibromyalgia, 7. Chronic history of migraines, 8. Rheumatoid arthritis, 9. Osteoarthritis, 10. Oophorectomy for a cyst 11. Bowel resection. MEDICATIONS 1. Proventil inhalers 2 puffs q. 6 hours p.r.n. 2. Flonase 50 mcg b.i.d. 3. Gabapentin 300 mg t.i.d. 4. Levothyroxine 100 mcg daily. 5. Lisinopril 40 mg daily. 6. Lorazepam 45 mg t.i.d. 7. Meloxicam 7.5 mg b.i.d. 8. Simvastatin 20 mg q.h.s. ALLERGIES IODINE IODIDE SULFA MONOSODIUM GLUTAMATE SOCIAL HISTORY She is legally . Quit smoking in 2005. No alcohol use but history of marijuana use. REVIEW OF SYSTEMS Pertinent positives as mentioned in the history present illness otherwise negative. FAMILY HISTORY Heart disease in mother, emphysema in dad. LABORATORY FINDINGS White blood cell count 14, hemoglobin 14, platelet count 263, PT 10.4, INR 1.0, PT 24.7. Sodium 142, potassium 3.9, BUN 11, creatinine 0.75, glucose 135, PT 10.4, INR 1.0, PTT 24.7. PHYSICAL EXAMINATION VITAL SIGNS: Temperature 97.7, pulse is 86, respiratory rate 20, blood pressure 123/59, oxygen saturation 99% on 50% FIO2 HEAD: No Weiss's or raccoon sign. NECK: Mild nuchal rigidity. CHEST: Clear to auscultation bilaterally. HEART: Regular rate and rhythm, normal S1, S2. ABDOMEN: Soft, nontender. No hepatosplenomegaly. EXTREMITIES: No cyanosis, edema, deformity. SKIN: No rash or pustules or ecchymosis. NEUROLOGIC: She is intubated and sedated but does open her right eye. She appears to have a left ptosis. Left pupil is 3-4 mm nonreactive, right pupil is 2 millimeters. She has a weak withdrawal in the upper and lower extremities to pain but does not follow commands. There is positive gag and positive corneal. IMPRESSION 1. Subarachnoid hemorrhage from large left supraclinoid ICA broad based aneurysm. This is more superior and adjacent to the previous aneurysm clipping of a posterior communicating artery aneurysm 12 years ago up. She also has a small right MCA trifurcation unruptured aneurysm. 2. Hypertension 3. Severe COPD. PLAN The patient will be sedated with Diprivan along with a Cardene drip to maintain systolic blood pressure less than 140 to reduce risk for any further aneurysmal bleed. An emergent ventriculostomy will be placed for treatment of any developing hydrocephalus along with a subarachnoid hemorrhage. Sequential compression device will be used for DVT prophylaxis and she will also be started on nimodipine for vasospasm ischemia prophylaxis. Keppra for seizure prophylaxis. Protonix for gastrointestinal stress ulcer prophylaxis. Arrangements are being made for transfer to the [facility] for definitive cerebral aneurysmal recurrence treatment by cerebrovascular surgeon. Her condition obviously is critical with a guarded prognosis. Discussed with hospitalist and contact printer dry film. MD SAROJ Monaco/ /3:44 PM /4:33 PM LEIDY
[2017-09-09] MEDS ORDERED: levETIRAcetam INJ 500 MG in SODIUM CHLORIDE 0.9% INJ 100 ML IV SCH (21:00)
[2017-09-10] MEDS ORDERED: PANTOPRAZOLE SODIUM 40 MG VIAL IV PUSH SCH (09:00)
--- NOTE | 2017-09-10 12:35 | EKG ---
Date Performed: 09/09/2017 Time Performed: 11:36:33 PTAGE: 66 years EKG: Sinus rhythm WITH SHORT W[place] INTERVAL WITH OCCASIONAL ECTOPIC PREMATURE COMPLEXES WITH MARKED RHYTHM IRREGULARITY, POSSIBLE NON-CONDUCTED PAC, SA BLOCK, AV BLOCK, OR SINUS PAUSE ABNORMAL RHYTHM ECG Compared to PREVIOUS TRACING , ectopy is new. PREVIOUS TRACIN10/27/2015 18.14 DOCTOR: Caleb Osei Interpretating Date/Time 09/10/2017 12:33:31
== END 2017-09-09 16:10 | disposition short-term general hospital (02) ==
LOC: NEPD 18:22 → NEDA 09-09 00:13 → NEDH 09-09 04:13 → N03A 09-09 13:22
PROVIDERS: ADMIT Hospitalist; ATTEND Hospitalist
DX: I60.7 Nontraumatic subarachnoid hemorrhage from unspecified intracranial artery (principal); I61.5 Nontraumatic intracerebral hemorrhage, intraventricular; G91.9 Hydrocephalus, unspecified; G93.89 Other specified disorders of brain; G93.40 Encephalopathy, unspecified; I16.1 Hypertensive emergency; I10 Essential (primary) hypertension; J44.9 Chronic obstructive pulmonary disease, unspecified; J96.01 Acute respiratory failure with hypoxia; E03.9 Hypothyroidism, unspecified; E78.5 Hyperlipidemia, unspecified; R94.31 Abnormal electrocardiogram [ECG] [EKG]; M79.7 Fibromyalgia; M06.9 Rheumatoid arthritis, unspecified; Z86.73 Personal history of transient ischemic attack (TIA), and cerebral infarction without residual deficits; Z86.79 Personal history of other diseases of the circulatory system; Z87.891 Personal history of nicotine dependence; Z90.710 Acquired absence of both cervix and uterus; Z90.721 Acquired absence of ovaries, unilateral; Z91.041 Radiographic dye allergy status
CPT/HCPCS: 31500; 36556; 36600; 61107; 61210; 70450; 70470; 70496; 70498; 71045; 80053; 82550; 82552; 82805; 83036; 83735; 84100; 84484; 85025; 85610; 85652; 85730; 86140; 93005; 94002; 96365; 96366; 96374; 96375; 96376; 99152; 99285; 99291; G0378; J0330; J1170; J2060; J2270; J2405; J2765; J2930; J7050; Q0163; Q9967; 70460